=== PATIENT | male | born 1940 | race Caucasian/White ===

== ENCOUNTER 2021-07-04 18:44 | Emergency (ER) | payer MEDICARE, OTHER ==
[~2021-07-04] VITALS: Ht 170.2 cm; Wt 79.4 kg
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
[2021-07-04] MEDS ORDERED: FENTANYL PF 100MCG/2ML AMPUL IM ONE (19:00)
[2021-07-04] MEDS ORDERED: FENTANYL PF 100MCG/2ML AMPUL ONE (19:02)
[2021-07-04] MEDS ORDERED: PROPOFOL 200 MG/20 ML VIAL IV ONE (20:00)
[2021-07-04] MEDS ORDERED: PROPOFOL 20 ML IV ONE (20:04)
[2021-07-04] MEDS ORDERED: IBUP-1957 PO (21:06)
[2021-07-04] MEDS ORDERED: OXYC-128 PO (21:06)
[2021-07-04 21:20] VITALS: BP 185/100
--- NOTE | 2021-07-04 21:20 | NUR ---
Patient discharged to home in stable condition. Written and verbal after care instructions given. Patient verbalizes understanding of instruction. RX given
[2021-07-04] MEDS ORDERED: HYDROMORPHONE 1 MG/1 ML DISP.SYRIN IV ONE (21:30)
== END 2021-07-04 21:28 | disposition home or self-care (01) ==
LOC: ER 19:35
DX: S42.392A Other fracture of shaft of left humerus, initial encounter for closed fracture (principal); S43.085A Other dislocation of left shoulder joint, initial encounter; I10 Essential (primary) hypertension; M19.90 Unspecified osteoarthritis, unspecified site; Z60.2 Problems related to living alone; Z79.899 Other long term (current) drug therapy; W05.0XXA Fall from non-moving wheelchair, initial encounter; Y93.89 Activity, other specified; Y92.89 Other specified places as the place of occurrence of the external cause; Y99.8 Other external cause status
CPT/HCPCS: 23650; 73030 ×2; 73060; 96372; 99152; 99291; J2704; J3010; G0500